=== PATIENT | male | born 1990 | race Native Hawaiian/Other Pacific Islander ===

== ENCOUNTER 2020-08-09 15:21 | Emergency (ER) | payer BC ==
[~2020-08-09] VITALS: Ht 182.9 cm; Wt 113.4 kg
[2020-08-09 15:30] VITALS: TEMP 100.1
[2020-08-09 16:40] VITALS: BP 140/80
== END 2020-08-09 16:48 | disposition home or self-care (01) ==
LOC: ED 15:21
PROC: 0HQKXZZ Repair Right Lower Leg Skin, External Approach (ICD-10-PCS; principal; 2020-08-09)
DX: S81.811A Laceration without foreign body, right lower leg, initial encounter (principal); W45.8XXA Other foreign body or object entering through skin, initial encounter; Y92.89 Other specified places as the place of occurrence of the external cause
CPT/HCPCS: 90471; 90715; 99283